=== PATIENT | female | born 1985 | race African-American/Black ===

== ENCOUNTER 2019-02-16 02:46 | Emergency (ER) | payer MEDICAID, OTHER ==
[~2019-02-16] VITALS: Ht 170.2 cm; Wt 63.2 kg
[2019-02-16] MEDS ORDERED: IBUPROFEN 600MG TABLET PO ONE (04:15)
[2019-02-16 07:14] VITALS: BP 99/53
== END 2019-02-16 07:16 | disposition home or self-care (01) ==
LOC: ER 02:46
DX: S82.832A Other fracture of upper and lower end of left fibula, initial encounter for closed fracture (principal); V18.0XXA Pedal cycle driver injured in noncollision transport accident in nontraffic accident, initial encounter; Y93.55 Activity, bike riding; Y92.89 Other specified places as the place of occurrence of the external cause; F17.210 Nicotine dependence, cigarettes, uncomplicated
CPT/HCPCS: 29515; 73590; 73630; 81025; 99283; L1830

== ENCOUNTER 2019-05-28 01:31 | Emergency (ER) | payer BC ==
[~2019-05-28] VITALS: Ht 170.2 cm; Wt 59.0 kg
[2019-05-28] MEDS ORDERED: IBUPROFEN 600MG TABLET PO STA (04:03)
[2019-05-28 08:02] VITALS: BP 128/86
== END 2019-05-28 08:04 | disposition home or self-care (01) ==
LOC: ER 01:31
DX: S00.83XA Contusion of other part of head, initial encounter (principal); M79.632 Pain in left forearm; F15.10 Other stimulant abuse, uncomplicated; R07.81 Pleurodynia; Y08.89XA Assault by other specified means, initial encounter; Y93.89 Activity, other specified; Y92.89 Other specified places as the place of occurrence of the external cause; Y99.8 Other external cause status
CPT/HCPCS: 70140; 71101; 73090; 81025; 99283